=== PATIENT | female | born 1990 | race Caucasian/White ===

== ENCOUNTER → 2016-07-11 | Outpatient (CLI) | payer OTHER ==
[~2016-07-11] MED LIST: MULT-513 PO
--- NOTE | 2016-07-11 12:13 | DIAGNOSTIC IMAGING REPORT ---
HYSTEROSALPINGOGRAM HISTORY: Infertility. FLUOROSCOPY TIME: 0.2 minutes. 3 fluoroscopic spot images.. TECHNIQUE: The cervix was cannulated by the assessment manager-provider scribe and water soluble contrast was instilled into the uterus under fluoroscopic guidance. Multiple spot images were obtained. FINDINGS: The uterine cavity is normal in size, shape, and position. The fallopian tubes are patent and there is free peritoneal spill bilaterally. IMPRESSION: Normal hysterosalpingogram. Electronically signed by: Jayant Berry M.D. 07/11/2016 12:11 PM Dictated Date/Time: 07/11/2016 12:11 PM
== END | disposition home or self-care (01) ==
LOC: C.RAD 11:06
PROVIDERS: ATTEND Obstetrics & Gynecology
DX: N97.9 Female infertility, unspecified (principal)